=== PATIENT | male | born 1960 | race Caucasian/White ===

== ENCOUNTER 2016-09-21 23:22 | Emergency (ER) | payer SELFPAY ==
--- NOTE | ~2016-09-21 | ER ---
PATIENT'S NAME: LAURY FAULKNER [facility] AGE: 55 Y [address] ROOM: [place] [address] LOCATION: [facility] ADMIT DATE: 09/21/2016 ER/Outpatient Report DISCHARGE DATE: 09/21/2016 FAMILY PHYSICIAN: Abdoul Hercules MD ATTENDING PHYSICIAN: Kobe Billingsley Admission date and time documented on the medical record. I saw the patient at 2335 hours. CHIEF COMPLAINT: Scalp laceration. HISTORY OF PRESENT ILLNESS: This patient is a 55-year-old male who was injured when a glass jar fell about 4 feet and landed on top of his head. It broke when it hit his head. He suffered a laceration to the mid upper posterior scalp measuring about 4 cm. The patient did not lose consciousness. The patient remembers everything. The patient has no visual or auditory disturbance, lateralizing weakness, numbness, tingling, or loss of function. No chest pain, shortness of breath. No abdominal pain, nausea, vomiting, or diarrhea. No incontinence of stool or urine. No recent colds, coughs, flus, fever, chills, or sweats. No lightheadedness or dizziness. No syncope or near syncope. Pain around the laceration, but no headache; eyes, ears, nose, throat, neck, or spine pain. No joint or muscle swelling, redness, or pain. No skin eruptions or rashes. No neuro changes, psych issues, or endocrine problems. HOME MEDICATIONS: See attached medication list. ALLERGIES: PENICILLIN. SOCIAL HISTORY: Nonsmoker and nondrinker. SIGNIFICANT PAST MEDICAL HISTORY: Negative. OPERATIONS: Toe surgery. REVIEW OF SYSTEMS: All systems reviewed by me are negative with the exception of those discussed in the history of present illness. PATIENT'S NAME: LAURY FAULKNER [facility] AGE: 55 Y [address] ROOM: [place] [address] LOCATION: [facility] ADMIT DATE: 09/21/2016 ER/Outpatient Report DISCHARGE DATE: 09/21/2016 FAMILY PHYSICIAN: Abdoul Hercules MD ATTENDING PHYSICIAN: Kobe Billingsley PHYSICAL EXAMINATION: VITAL SIGNS: Pulse 93, respirations 16, blood pressure 134/88, and O2 saturation on room air is 97%. [place] Coma Scale was 15. HEENT: Head: Normocephalic. The patient has a vertical 4 cm laceration at top posterior scalp and mid scalp. The wound was cleansed with normal saline, staple closed with 4 mateus. The patient tolerated the procedure well. Eyes: Extraocular muscles intact. PERRL. Ears, Nose, Throat: Clear. NECK: Full range of motion. No tenderness. No nuchal rigidity. No thyromegaly or cervical adenopathy. SPINE: Negative. LUNGS: Clear. HEART: Regular. ABDOMEN: Soft, nontender. Good bowel tones. No organomegaly or abnormal mass palpable. EXTREMITIES: Intact. NEUROVASCULAR: Intact. SKIN: Clear. No skin eruptions or rash. IMPRESSION: A 4 cm scalp laceration with simple staple closure. PLAN: The patient dismissed home. Observation. Activity as tolerated. Keep the wound clean. Watch for infection. Tylenol or ibuprofen 2 every 4-6 hours as needed for pain. Follow up with personal physician in 10-14 days for suture removal or sooner if needed. Discussion ensued with the patient concerning my findings and recommendations, he understands. MD ADELINE HALL/patricial /[id number] d: 09/22/16 0248 t: 09/25/16 1821, OUTPATIENT REPORT
== END 2016-09-21 23:53 | disposition disaster alternative care site (69) ==
LOC: GACC 23:22
PROC: 0HQ0XZZ Repair Scalp Skin, External Approach (ICD-10-PCS; principal; 2016-09-21)
DX: S01.01XA Laceration without foreign body of scalp, initial encounter (principal); Z88.0 Allergy status to penicillin; Y93.9 Activity, unspecified; Z98.890 Other specified postprocedural states; W22.8XXA Striking against or struck by other objects, initial encounter